=== PATIENT | female | born 1940 | race Caucasian/White ===

== ENCOUNTER 2017-01-20 14:19 | Emergency (ER) | payer OTHER ==
[~2017-01-20] VITALS: Ht 170.2 cm; Wt 78.3 kg
[~2017-01-20 14:19] MED LIST: ADVAIR 250/501 DISK IH; AZITHROMYCIN500 MG PO; Advair HFA 115/21 IH; BENZONATATE200 MG PO; BROVANA15 MCG/2 M IH; CEFTIN500 MG PO; CITALOPRAM HBR20 MG PO; COMBIVENT RESPIM4 GM IH; Combivent IH; DUONEB 2.5-0.5 M3 ML AEROSOL; FUROSEMIDE20 MG PO; HYDROCHLOROTHIA25 MG PO; KLOR-CON 1010 ME1 PO; LEVAQUIN500 MG PO; LEVAQUIN750 MG PO; LEVOTHYROXINE50 MCG PO; LEVOTHYROXINE75 MCG PO; LISINOPRIL10 MG PO; Levaquin PO; Levothroid,Synthroid PO; METOLAZONE2.5 MG PO; MULTIVITAMIN1 EAC2 PO; OMEPRAZOLE40 M1 PO; PREDNISONE20 MG PO; PRILOSEC40 MG PO; PROVENTIL,2.5 MG/0.5 IH; PROVENTIL2.5 MG/3 M IH; SELENIUM100 MICROG PO; SELENIUM50 MCG PO; SEROQUEL XR50 MG PO; SINGULAIR10 MG PO; THEO-DUR,THEOC200 MG PO; TYLENOL REGULA325 MG PO; VITAMIN C1000 MG PO; VITAMIN D1000 INTUN PO; VITAMIN E400 UNI6 PO; predniSONE PO
[2017-01-20 14:48] LABS: EOSINOPHIL (%) 0 % (0-5); HEMATOCRIT 46.2 % (36.0-46.0); IMMATURE GRANULOCYTE (%) 0.6 % (0.0-0.7); IMMATURE GRANULOCYTE COUNT 0.1 K/uL; INSTRUMENT ABS NEUTROPHIL CT 8.4 K/uL; LYMPHOCYTE COUNT 0.8 K/uL (1.0-2.8); MCH 28.6 PG (29.0-34.0); MCHC 31.2 G/DL (30.0-36.0); MCV 91.7 FL (83-99); MEAN PLAT.VOLUME 9.1 uM^3 (9.5-12.4); MONOCYTE (%) 4.2 % (3-12); MONOCYTE COUNT 0.4 K/uL (0-0.8); NEUTROPHIL (%) 87.1 % (45-76); NEUTROPHIL COUNT 8.4 K/uL (1.8-6.4); PLATELET COUNT 221 K/uL (156-360); RBC DIS.WIDTH-CV 13.2 % (11.8-14.6); RED BLOOD COUNT 5.04 M/uL (3.80-5.20); WHITE BLOOD COUNT 9.6 K/uL (4.1-10.2)
[2017-01-20 14:59] LABS: CHLORIDE 106 mEq/L (99-109); POTASSIUM 4.2 mEq/L (3.7-5.4); SODIUM 146 mEq/L (136-147)
[2017-01-20 15:01] LABS: GLUCOSE 112 mg/dL (70-99)
[2017-01-20 15:02] LABS: ANION GAP 10 MEQ/L (2-14)
[2017-01-20 15:05] LABS: GFR ESTIMATE (CALCULATED) > 59 mL/min/; UREA NITROGEN (BUN) 21 mg/dL (9-23)
[2017-01-20 15:09] LABS: TROP-I INTERPRETATION NEGATIVE; TROPONIN-I 0.01 ng/mL (0.0-0.30)
[2017-01-20] MEDS ORDERED: LEVAQUIN500 MG PO (17:15)
[2017-01-20] MEDS ORDERED: PREDNISONE50 MG PO (17:15)
[2017-01-20 17:32] VITALS: BP 117/72
== END 2017-01-20 17:41 | disposition home or self-care (01) ==
LOC: EME 14:19
PROVIDERS: Emergency Medicine
DX: J44.0 Chronic obstructive pulmonary disease with (acute) lower respiratory infection (principal); J20.9 Acute bronchitis, unspecified; J44.1 Chronic obstructive pulmonary disease with (acute) exacerbation; I10 Essential (primary) hypertension; K21.9 Gastro-esophageal reflux disease without esophagitis; Z87.891 Personal history of nicotine dependence
CPT/HCPCS: 71010; 80048; 84484; 85025; 93005; 94640; 99202; 99281; 99285; J2930; J7644

== ENCOUNTER 2017-06-23 11:32 | Inpatient (IN) | payer OTHER ==
[~2017-06-23] VITALS: Ht 160 cm; Wt 102.2 kg
[~2017-06-23 11:32] MED LIST changes: +PREDNISONE50 MG PO; -THEO-DUR,THEOC200 MG PO; +THEOPHYLLINE400 MG PO; +TYLENOL EXTRA500 MG PO; -TYLENOL REGULA325 MG PO; -VITAMIN D1000 INTUN PO; +VITAMIN D31000 UNIT PO
[2017-06-23 14:06] LABS: HEMATOCRIT 50.4 % (36.0-46.0); HEMOGLOBIN 16.4 G/DL (11.9-15.5); MCH 29.8 PG (29.0-34.0); MCHC 32.5 G/DL (30.0-36.0); MCV 91.6 FL (83-99); PLATELET COUNT 221 K/uL (156-360); RBC DIS.WIDTH-CV 13.5 % (11.8-14.6); RBC DIS.WIDTH-SD 45.9 % (39-53); WHITE BLOOD COUNT 10.9 K/uL (4.1-10.2)
[2017-06-23 14:24] LABS: CHLORIDE 98 mEq/L (99-109); POTASSIUM 4.6 mEq/L (3.7-5.4); SODIUM 142 mEq/L (136-147)
[2017-06-23 14:26] LABS: GLUCOSE 115 mg/dL (70-99)
[2017-06-23 14:30] LABS: CREATININE 0.9 mg/dL (0.6-1.3); GFR ESTIMATE (CALCULATED) > 59 mL/min/
[2017-06-23 14:31] LABS: UREA NITROGEN (BUN) 22 mg/dL (9-23)
[2017-06-23 17:11] LABS: THEOPHYLLINE 14.4 MCG/ML (10-20)
[2017-06-23 17:26] LABS: TROP-I INTERPRETATION NEGATIVE; TROPONIN-I 0.03 ng/mL (0.0-0.30)
[2017-06-23 18:35] LABS: TROP-I INTERPRETATION NEGATIVE; TROPONIN-I 0.02 ng/mL (0.0-0.30)
[2017-06-23] MEDS ORDERED: LASIX40 MG PO (21:29)
[2017-06-23] MEDS ORDERED: TARGADOX50 MG PO (21:37)
[2017-06-23] MEDS ORDERED: COZAAR50 MG PO (21:38)
[2017-06-23] MEDS ORDERED: KLOR-CON 1010 ME1 PO (21:39)
[2017-06-23] MEDS ORDERED: METOLAZONE2.5 MG PO (21:40)
[2017-06-23] MEDS ORDERED: PREDNISONE10 MG PO (21:47)
[2017-06-23 23:40] VITALS: BP 147/77
[2017-06-24 03:52] VITALS: BP 155/75
[2017-06-24 07:12] LABS: HEMATOCRIT 51.3 % (36.0-46.0); HEMOGLOBIN 16.3 G/DL (11.9-15.5); MCH 29.3 PG (29.0-34.0); MCHC 31.8 G/DL (30.0-36.0); MCV 92.3 FL (83-99); PLATELET COUNT 219 K/uL (156-360); RBC DIS.WIDTH-CV 13.8 % (11.8-14.6); RBC DIS.WIDTH-SD 47.4 % (39-53); RED BLOOD COUNT 5.56 M/uL (3.80-5.20); WHITE BLOOD COUNT 9.4 K/uL (4.1-10.2)
[2017-06-24 07:36] LABS: CHLORIDE 97 MEQ/L (99-109); GFR ESTIMATE (CALCULATED) 57 mL/min/; GLUCOSE 143 mg/dL (70-99); POTASSIUM 4.7 MEQ/L (3.7-5.4); SODIUM 141 MEQ/L (136-147); UREA NITROGEN (BUN) 26 mg/dL (9-23)
[2017-06-24 08:37] VITALS: BP 132/72
[2017-06-24 16:18] VITALS: BP 137/78
[2017-06-24 19:10] VITALS: BP 138/65
[2017-06-24 23:30] VITALS: BP 127/60
[2017-06-25 03:29] VITALS: BP 134/60
[2017-06-25 07:30] VITALS: BP 132/60
[2017-06-25 12:25] VITALS: BP 151/67
[2017-06-25 16:03] VITALS: BP 145/67
[2017-06-25 19:45] VITALS: BP 126/64
[2017-06-25 23:17] VITALS: BP 123/62
[2017-06-26 04:06] VITALS: BP 162/77
[2017-06-26 07:45] VITALS: BP 150/72
[2017-06-26 11:37] VITALS: BP 159/67
[2017-06-26] MEDS ORDERED: DULERA 100 MCG/13 GM IH (11:39)
[2017-06-26] MEDS ORDERED: SPIRIVA RESPIMAT4 GM IH (11:41)
[2017-06-26] MEDS ORDERED: PREDNISONE10 MG PO (11:44)
== END 2017-06-26 16:00 | disposition home health service (06) | DRG 190 ==
LOC: EME 11:32 → EDOF 22:03 → ENRESERV 22:13 → 5WEST 23:09 → ENRESERV 06-24 11:53 → CANRESERV 06-24 11:53 → 5WEST 06-26 16:00
PROVIDERS: Hospitalist; Nurse Practitioner Family
DX: J44.1 Chronic obstructive pulmonary disease with (acute) exacerbation (principal); J96.21 Acute and chronic respiratory failure with hypoxia; J20.9 Acute bronchitis, unspecified; J44.0 Chronic obstructive pulmonary disease with (acute) lower respiratory infection; I11.0 Hypertensive heart disease with heart failure; I50.9 Heart failure, unspecified; Z99.81 Dependence on supplemental oxygen; K21.9 Gastro-esophageal reflux disease without esophagitis; I25.2 Old myocardial infarction; Z85.21 Personal history of malignant neoplasm of larynx; Z90.11 Acquired absence of right breast and nipple; Z92.3 Personal history of irradiation; E03.9 Hypothyroidism, unspecified; Z87.01 Personal history of pneumonia (recurrent)
CPT/HCPCS: 71046; 71275; 80048; 80198; 83880; 84484; 85027; 93005; 94640; 94640 76; 94799; 99202; 99281; 99285; G0378; J1100; J1644; J2920; J2930

== ENCOUNTER 2017-07-09 12:13 | Inpatient (IN) | payer OTHER ==
[~2017-07-09] VITALS: Ht 160 cm; Wt 99.1 kg
[~2017-07-09 12:13] MED LIST changes: +COZAAR50 MG PO; +DULERA 100 MCG/13 GM IH; +LASIX20 MG PO; +PREDNISONE10 MG PO; +SPIRIVA RESPIMAT4 GM IH; +TARGADOX50 MG PO
[2017-07-09 13:36] LABS: BASOPHIL (%) 0.2 % (0-1); EOSINOPHIL (%) 1.2 % (0-5); EOSINOPHIL COUNT 0.1 K/uL (0-0.3); HEMATOCRIT 46.3 % (36.0-46.0); HEMOGLOBIN 14.9 G/DL (11.9-15.5); IMMATURE GRANULOCYTE (%) 0.3 % (0.0-0.7); LYMPHOCYTE (%) 4.4 % (15-42); LYMPHOCYTE COUNT 0.4 K/uL (1.0-2.8); MCH 29.6 PG (29.0-34.0); MCHC 32.2 G/DL (30.0-36.0); MCV 91.9 FL (83-99); MONOCYTE (%) 2.3 % (3-12); MONOCYTE COUNT 0.2 K/uL (0-0.8); NEUTROPHIL (%) 91.6 % (45-76); NEUTROPHIL COUNT 8.9 K/uL (1.8-6.4); PLATELET COUNT 183 K/uL (156-360); RBC DIS.WIDTH-CV 13.9 % (11.8-14.6); RBC DIS.WIDTH-SD 46.9 % (39-53); RED BLOOD COUNT 5.04 M/uL (3.80-5.20); WHITE BLOOD COUNT 9.7 K/uL (4.1-10.2)
[2017-07-09 13:45] LABS: CHLORIDE 100 mEq/L (99-109); POTASSIUM 3.7 mEq/L (3.7-5.4); PTT 34.9 SEC (25-37); SODIUM 143 mEq/L (136-147)
[2017-07-09 13:47] LABS: GLUCOSE 99 mg/dL (70-99)
[2017-07-09 13:51] LABS: CREATININE 0.9 mg/dL (0.6-1.3); GFR ESTIMATE (CALCULATED) > 59 mL/min/; UREA NITROGEN (BUN) 14 mg/dL (9-23)
[2017-07-09 13:57] LABS: TROP-I INTERPRETATION NEGATIVE; TROPONIN-I 0.03 ng/mL (0.0-0.30)
[2017-07-09] MEDS ORDERED: ADVAIR 100/501 DISK IH (19:09)
[2017-07-09] MEDS ORDERED: BREO ELLIPTA 21 EACH IH (19:16)
[2017-07-09 20:34] VITALS: BP 163/75
[2017-07-09 23:00] LABS: APPEARANCE CLEAR ((CLEAR)); BILIRUBIN NEGATIVE; BLOOD NEGATIVE; COLOR YELLOW ((YELLOW)); GLUCOSE (STRIP) NEGATIVE; KETONES NEGATIVE; LEUKOCYTES NEGATIVE; NITRITE NEGATIVE; PROTEIN (STRIP) NEGATIVE; SPECIFIC GRAVITY 1.024 (1.000-1.030); UCUL ADDED? NO; UROBILINOGEN 0.2 MG/DL (0.2-1.0)
[2017-07-09 23:27] VITALS: BP 131/63
[2017-07-10 04:08] VITALS: BP 149/74
[2017-07-10 06:07] LABS: BASOPHIL (%) 0.1 % (0-1); EOSINOPHIL (%) 0 % (0-5); HEMATOCRIT 46.4 % (36.0-46.0); HEMOGLOBIN 14.7 G/DL (11.9-15.5); IMMATURE GRANULOCYTE (%) 0.7 % (0.0-0.7); LYMPHOCYTE (%) 4.5 % (15-42); LYMPHOCYTE COUNT 0.4 K/uL (1.0-2.8); MCH 29.2 PG (29.0-34.0); MCHC 31.7 G/DL (30.0-36.0); MCV 92.1 FL (83-99); MONOCYTE (%) 0.5 % (3-12); NEUTROPHIL (%) 94.2 % (45-76); NEUTROPHIL COUNT 7.8 K/uL (1.8-6.4); PLATELET COUNT 213 K/uL (156-360); RBC DIS.WIDTH-CV 13.7 % (11.8-14.6); RBC DIS.WIDTH-SD 46.5 % (39-53); RED BLOOD COUNT 5.04 M/uL (3.80-5.20); WHITE BLOOD COUNT 8.2 K/uL (4.1-10.2)
[2017-07-10 06:37] LABS: CHLORIDE 102 MEQ/L (99-109); CREATININE 0.8 MG/DL (0.6-1.3); GFR ESTIMATE (CALCULATED) > 59 mL/min/; GLUCOSE 138 mg/dL (70-99); SODIUM 143 MEQ/L (136-147); UREA NITROGEN (BUN) 18 mg/dL (9-23)
[2017-07-10 07:42] VITALS: BP 171/82
[2017-07-10 11:50] VITALS: BP 129/61
[2017-07-10 16:49] VITALS: BP 156/72
[2017-07-10 20:03] VITALS: BP 134/63; BP 173/77
[2017-07-11] VITALS: BP 147/71
[2017-07-11 04:00] VITALS: BP 167/77
[2017-07-11 08:03] VITALS: BP 173/88
[2017-07-11 10:02] LABS: HEMATOCRIT 46.9 % (36.0-46.0); HEMOGLOBIN 15.1 G/DL (11.9-15.5); MCHC 32.2 G/DL (30.0-36.0); MCV 93.1 FL (83-99); PLATELET COUNT 228 K/uL (156-360); RBC DIS.WIDTH-CV 13.9 % (11.8-14.6); RBC DIS.WIDTH-SD 46.8 % (39-53); RED BLOOD COUNT 5.04 M/uL (3.80-5.20); WHITE BLOOD COUNT 12.8 K/uL (4.1-10.2)
[2017-07-11 10:14] LABS: CHLORIDE 101 mEq/L (99-109); POTASSIUM 5.5 mEq/L (3.7-5.4); SODIUM 144 mEq/L (136-147)
[2017-07-11 10:16] LABS: GLUCOSE 113 mg/dL (70-99)
[2017-07-11 10:20] LABS: CREATININE 0.8 mg/dL (0.6-1.3); GFR ESTIMATE (CALCULATED) > 59 mL/min/
[2017-07-11 10:21] LABS: UREA NITROGEN (BUN) 24 mg/dL (9-23)
[2017-07-11 11:56] VITALS: BP 131/91
[2017-07-11 15:56] VITALS: BP 144/74
[2017-07-11 19:56] VITALS: BP 152/74
[2017-07-12] VITALS: BP 153/72
[2017-07-12 06:56] LABS: CHLORIDE 99 MEQ/L (99-109); CREATININE 0.8 MG/DL (0.6-1.3); GFR ESTIMATE (CALCULATED) > 59 mL/min/; GLUCOSE 100 mg/dL (70-99); SODIUM 145 MEQ/L (136-147); UREA NITROGEN (BUN) 25 mg/dL (9-23)
[2017-07-12 07:00] LABS: POTASSIUM 3.7 MEQ/L (3.7-5.4)
[2017-07-12 08:00] VITALS: BP 164/90
[2017-07-12 16:00] VITALS: BP 150/70
[2017-07-13] VITALS: BP 140/63
[2017-07-13 07:05] LABS: HEMATOCRIT 47.1 % (36.0-46.0); HEMOGLOBIN 14.7 G/DL (11.9-15.5); MCH 29.3 PG (29.0-34.0); MCHC 31.2 G/DL (30.0-36.0); MCV 93.8 FL (83-99); PLATELET COUNT 193 K/uL (156-360); RBC DIS.WIDTH-CV 14.1 % (11.8-14.6); RBC DIS.WIDTH-SD 48.3 % (39-53); RED BLOOD COUNT 5.02 M/uL (3.80-5.20); WHITE BLOOD COUNT 5.9 K/uL (4.1-10.2)
[2017-07-13 07:28] LABS: CHLORIDE 99 MEQ/L (99-109); CREATININE 0.9 MG/DL (0.6-1.3); GFR ESTIMATE (CALCULATED) > 59 mL/min/; GLUCOSE 82 mg/dL (70-99); POTASSIUM 3.6 MEQ/L (3.7-5.4); SODIUM 145 MEQ/L (136-147); UREA NITROGEN (BUN) 28 mg/dL (9-23)
[2017-07-13 08:13] VITALS: BP 144/74
[2017-07-13] MEDS ORDERED: KLOR-CON M2020 MEQ PO (12:07)
[2017-07-13] MEDS ORDERED: MUCINEX600 MG PO (12:07)
[2017-07-13] MEDS ORDERED: BACTRIM,SEPT1 TABLET PO (12:07)
[2017-07-13] MEDS ORDERED: LASIX40 MG PO (12:07)
[2017-07-13] MEDS ORDERED: LEVAQUIN750 MG PO (12:07)
[2017-07-13] MEDS ORDERED: PREDNISONE10 MG PO (12:07)
== END 2017-07-13 14:37 | disposition home health service (06) | DRG 190 ==
LOC: EME 12:13 → EDOF 18:39 → 5SOUTH 18:39 → ENRESERV 18:48 → 5SOUTH 20:22
PROVIDERS: Emergency Medicine; Hospitalist
DX: J44.0 Chronic obstructive pulmonary disease with (acute) lower respiratory infection (principal); J18.9 Pneumonia, unspecified organism; J96.21 Acute and chronic respiratory failure with hypoxia; J44.1 Chronic obstructive pulmonary disease with (acute) exacerbation; Z99.81 Dependence on supplemental oxygen; J20.9 Acute bronchitis, unspecified; K21.9 Gastro-esophageal reflux disease without esophagitis; E03.9 Hypothyroidism, unspecified; Z92.3 Personal history of irradiation; Z87.891 Personal history of nicotine dependence; E66.9 Obesity, unspecified; I27.20 Pulmonary hypertension, unspecified; Z68.38 Body mass index [BMI] 38.0-38.9, adult; E11.9 Type 2 diabetes mellitus without complications; I25.10 Atherosclerotic heart disease of native coronary artery without angina pectoris; I71.4 Abdominal aortic aneurysm, without rupture; N13.0 Hydronephrosis with ureteropelvic junction obstruction; I50.33 Acute on chronic diastolic (congestive) heart failure; I11.0 Hypertensive heart disease with heart failure
CPT/HCPCS: 71045; 71275; 76770; 80048; 81003; 83605; 84484; 85025; 85027; 85610; 85730; 87040; 87070; 87077; 87186; 87205; 87449; 87502; 87631; 93005; 93306; 93970; 94640; 94640 76; 94667; 94668; 94799; 99202; 99281; 99285; J0692; J1100; J1650; J1940; J1956; J2543; J2930; J3370; J7050; J7512; J7644